=== PATIENT | female | born 1985 | race Caucasian/White ===

== ENCOUNTER 2018-04-16 15:00 | Emergency (ER) | payer SELFPAY ==
--- NOTE | 2018-04-16 15:19 | EDM.PDOC ---
ED HPI GENERAL MEDICAL PROBLEM - General Chief Complaint: Abdominal Pain Stated Complaint: RT SIDE HURTS Time Seen by Provider: 04/16/18 15:18 Source of Information: Reports: Patient History Limitations: Reports: No Limitations - History of Present Illness INITIAL COMMENTS - FREE TEXT/NARRATIVE: HISTORY AND PHYSICAL: []33-year-old female presenting with right upper quadrant pain History of Present Illness: []Patient has stated she's had this pain for months off and on but steady now for the last 4 days She does state that it hurts worse after she eats Review of Systems: As per history of present illness and below otherwise all systems reviewed and negative. Past medical history: As per history of present illness and as reviewed below otherwise noncontributory. Surgical history: As per history of present illness and as reviewed below otherwise noncontributory. Social history: No reported history of drug or alcohol abuse. Family history: As per history of present illness and as reviewed below otherwise noncontributory. Physical exam: Alert and oriented female answering questions appropriately in full sentences without any shortness of breath. Nontoxic in appearance. HEENT: Atraumatic, normocehpalic, pupils reactive, negative for conjunctival pallor or scleral icterus, mucous membranes moist, throat clear, neck supple, nontender, trachea midline. Lungs: Clear to auscultation, breath sounds equal bilaterally, chest non tender. Heart: S1S2, regular, negative for clicks, rubs, or JVD. Abdomen: Soft, nondistended, nontender. Negative for masses or hepatossplenmegaly. Negative for costovertebral tenderness. Pelvis: Stable nontender. Genitourinary: Deferred. Rectal: Deferred Extremities: Atraumatic, negative for cords or calf pain. Neurovascular unremarkable. Neuro: Awake, alert, oriented. Cranial nerves II through XII unremarkable. Cerebellum unremarkable. Motor and sensory unremarkable throughout. Exam nonfocal. 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 Onset: Gradual Duration: Chronic Location: Reports: Abdomen Quality: Reports: Stabbing Severity: Moderate Improves with: Reports: None Worsens with: Reports: None RUQ pain Pain Score (Numeric/FACES): 8 - Related Data Allergies Allergy/AdvReac Type Severity Reaction Status Date / Time No Known Allergies Allergy Verified 04/16/18 15:12 Home Meds: Home Meds . [No Known Home Meds] 04/16/18 [History] Past Medical History - Past Health History Medical/Surgical History: Denies Medical/Surgical History - Past Surgical History Female Surgical History: Reports: Section Social & Family History - Family History Family Medical History: Noncontributory Cardiac: Reports: Hypertension - Tobacco Use Smoking Status *Q: Never Smoker Second Hand Smoke Exposure: No - Caffeine Use Caffeine Use: Reports: Coffee - Recreational Drug Use Recreational Drug Use: No ED ROS GENERAL - Review of Systems Review Of Systems: ROS reveals no pertinent complaints other than HPI. ED EXAM, GI/ABD - Physical Exam Exam: See Below (see dictation) Course - Vital Signs Last Recorded V/S: Last Vital Signs Temp 36.2 C 04/16/18 15:09 Pulse 91 04/16/18 15:09 Resp 16 04/16/18 15:09 BP 130/67 04/16/18 15:09 Pulse Ox 97 04/16/18 15:09 - Orders/Labs/Meds Orders: Active Orders 24 hr Category Date Time Status HCG QUALITATIVE,URINE [URCHEM] Stat Lab 04/16/18 15:19 Ordered Sodium Chloride 0.9% [Saline Flush] Med 04/16/18 15:16 Active 10 ml FLUSH ASDIRECTED PRN Sodium Chloride 0.9% [Saline Flush] Med 04/16/18 15:16 Active 2.5 ml FLUSH ASDIRECTED PRN Saline Lock Insert [OM.PC] Stat Oth 04/16/18 15:16 Ordered Medication Orders Sodium Chloride (Saline Flush) 10 ml FLUSH ASDIRECTED PRN PRN Reason: Keep Vein Open Last Admin: 04/16/18 15:46 Dose: 10 ml Sodium Chloride (Saline Flush) 2.5 ml FLUSH ASDIRECTED PRN PRN Reason: Keep Vein Open Last Admin: 04/16/18 15:46 Dose: 2.5 ml Labs: Laboratory Tests 04/16/18 04/16/1804/16/18 Range/Units 15:19 15:52 15:52 WBC 13.99 H (4.0-11.0) K/uL RBC 4.62 (4.30-5.90) M/uL Hgb 14.5 (12.0-16.0) g/dL Hct 42.5 (36.0-46.0) % MCV 92.0 (80.0-98.0) fL MCH 31.4 (27.0-32.0) pg MCHC 34.1 (31.0-37.0) g/dL RDW Std Deviation 43.5 (28.0-62.0) fl RDW Coeff of George 13 (11.0-15.0) % Plt Count 226 (150-400) K/uL MPV 10.60 (7.40-12.00) fL Neut % (Auto) 81.0 H (48.0-80.0) % Lymph % (Auto) 10.7 L (16.0-40.0) % [place] % (Auto) 7.0 (0.0-15.0) % Eos % (Auto) 1.1 (0.0-7.0) % Baso % (Auto) 0.2 (0.0-1.5) % Neut # (Auto) 11.3 H (1.4-5.7) K/uL Lymph # (Auto) 1.5 (0.6-2.4) K/uL [place] # (Auto) 1.0 H (0.0-0.8) K/uL Eos # (Auto) 0.2 (0.0-0.7) K/uL Baso # (Auto) 0.0 (0.0-0.1) K/uL Nucleated RBC % 0.0 /100WBC Nucleated RBCs # 0 K/uL Sodium 141 (136-145) mmol/L Potassium 3.9 (3.5-5.1) mmol/L Chloride 106 (98-107) mmol/L Carbon Dioxide 26.7 (21.0-32.0) mmol/L BUN 11 (7.0-18.0) mg/dL Creatinine 0.9 (0.6-1.0) mg/dL Est Cr Clr Drug Dosing 71.63 mL/min Estimated GFR (MDRD) > 60.0 ml/min Glucose 87 (74-106) mg/dL Calcium 8.8 (8.5-10.1) mg/dL Total Bilirubin 0.2 (0.2-1.0) mg/dL AST 15 (15-37) IU/L ALT 17 (14-63) IU/L Alkaline Phosphatase 49 (46-116) U/L Total Protein 7.3 (6.4-8.2) g/dL Albumin 4.0 (3.4-5.0) g/dL Globulin 3.3 (2.0-3.5) g/dL Albumin/Globulin Ratio 1.2 L (1.3-2.8) Amylase 47 (25-115) U/L Lipase 116 (73-393) U/L Urine HCG, Qual NEGATIVE (NEGATIVE) Meds: Medications Generic Name Dose Route Start Last Admin Trade Name Freq PRN Reason Stop Dose Admin Sodium Chloride 10 ml 04/16/18 15:16 04/16/18 15:46 Saline Flush FLUSH 10 ml ASDIRECTED PRN Administration Keep Vein Open Sodium Chloride 2.5 ml 04/16/18 15:16 04/16/18 15:46 Saline Flush FLUSH 2.5 ml ASDIRECTED PRN Administration Keep Vein Open Discontinued Medications Generic Name Dose Route Start Last Admin Trade Name Freq PRN Reason Stop Dose Admin Ketorolac Tromethamine 30 mg 04/16/18 15:17 04/16/18 15:45 Toradol IVPUSH 04/16/18 15:18 30 mg ONETIME ONE Administration Departure - Departure Time of Disposition: 16:30 Disposition: Home, Self-Care 01 Condition: Good Clinical Impression: Cholecystitis - Discharge Information Referrals: PCP,None [Primary Care Provider] - Michele Kendrick MD [Physician] - Forms: ED Department Discharge Additional Instructions: The following information is given to patients seen in the emergency department who are being discharged to home. This information is to outline your options for follow-up care. We provide all patients seen in our emergency department with a follow-up referral. The need for follow-up, as well as the timing and circumstances, are variable depending upon the specifics of your emergency department visit. If you don't have a primary care physician on staff, we will provide you with a referral. We always advise you to contact your personal physician following an emergency department visit to inform them of the circumstance of the visit and for follow-up with them and/or the need for any referrals to a consulting specialist. The emergency department will also refer you to a specialist when appropriate. This referral assures that you have the opportunity for followup care with a specialist. All of these measure are taken in an effort to provide you with optimal care, which includes your followup. Under all circumstances we always encourage you to contact your private physician who remains a resource for coordinating your care. When calling for followup care, please make the office aware that this follow-up is from your recent emergency room visit. If for any reason you are refused follow-up, please contact the [facility] emergency department at and asked to speak to the emergency department charge nurse. Take omeprazole twice daily No fat diet Referral has been sent for Dr. Michele Kendrick [facility] Special[facility] - General Surgery Professional [address], [address] [place] [address] call for an appointment for follow-up Turned to the emergency department as directed and discussed - My Orders Last 24 Hours: My Active Orders 04/16/18 15:16 Sodium Chloride 0.9% [Saline Flush] 10 ml FLUSH ASDIRECTED PRN Sodium Chloride 0.9% [Saline Flush] 2.5 ml FLUSH ASDIRECTED PRN Saline Lock Insert [OM.PC] Stat 04/16/18 15:19 HCG QUALITATIVE,URINE [URCHEM] Stat - Assessment/Plan Last 24 Hours: My Active Orders 04/16/18 15:16 Sodium Chloride 0.9% [Saline Flush] 10 ml FLUSH ASDIRECTED PRN Sodium Chloride 0.9% [Saline Flush] 2.5 ml FLUSH ASDIRECTED PRN Saline Lock Insert [OM.PC] Stat 04/16/18 15:19 HCG QUALITATIVE,URINE [URCHEM] Stat
[2018-04-16] MEDS: Ketorolac 30 MG/ML SDV IVPUSH ONE (15:45)
[2018-04-16] MEDS: Sodium Chloride 0.9% 10 ML Syringe FLUSH PRN (15:46)
[2018-04-16] MEDS: Sodium Chloride 0.9% 2.5 ML Syringe FLUSH PRN (15:46)
[2018-04-16 16:23] LABS: CHLORIDE,CL 106 mmol/L (98-107); SODIUM,NA 141 mmol/L (136-145)
--- NOTE | 2018-04-16 16:24 | US ---
Dominant sonogram Clinical history: Abdominal pain Comparison: None. Findings: The liver measures 18 cm in length and is of normal echogenicity. The gallbladder is physio logically distended and there is a large acoustically shadowing calculus present within the gallbladd er, mobile without gallbladder wall thickness or pericholecystic fluid. There is no common bile duct dilation. The duct measures 0.28 cm. Images of the right kidney nearby are normal. Impression: cholelithiasis with mobile gallstone in an otherwise normal gallbladder
== END 2018-04-16 16:45 | disposition home or self-care (01) ==
LOC: EDBD 15:00 → MW.ED 15:00
DX: K80.10 Calculus of gallbladder with chronic cholecystitis without obstruction (principal)
CPT/HCPCS: 36415; 76705; 80053; 81025; 82150; 83690; 85025; 96374; 99284; J1885; 99283

== ENCOUNTER 2018-04-28 07:03 | Day surgery (SDC) | payer SELFPAY ==
[~2018-04-28 07:03] MED LIST: Lactated Ringers 1,000 ML IV SCH; cefOXitin 2 GM in Premix Bag 1 BAG IV ONE
[2018-04-28] MEDS ORDERED: Propofol 200 MG/20 ML SDV ONE (07:08)
[2018-04-28] MEDS ORDERED: Midazolam 1 MG/ML 2 ML SDV ONE (07:08)
[2018-04-28] MEDS ORDERED: fentaNYL 250 MCG/5 ML SDV ONE (07:09)
[2018-04-28] MEDS ORDERED: Scopolamine 1.5 MG Transdermal Patch TRDERM PRN (07:23)
[2018-04-28] MEDS ORDERED: Bupivacaine 0.5% 10 ML SDV ONE (07:32)
[2018-04-28] MEDS ORDERED: ceFAZolin 1 GM Vial ONE (07:33)
--- NOTE | 2018-04-28 07:36 | PCM.PREANE ---
Preanesthetic Assessment - Anesthesia/Transfusion/Family Hx Anesthesia History: Prior Anesthesia Without Reaction Family History of Anesthesia Reaction: No Transfusion History: No Prior Transfusion(s) Intubation History: Unknown - Review of Systems General: No Symptoms Pulmonary: No Symptoms Cardiovascular: No Symptoms Gastrointestinal: Abdominal Pain Neurological: No Symptoms Other: Reports: None - Physical Assessment Height: 1.57 m Weight: 68.039 kg ASA Class: 2 Mental Status: Alert & Oriented x3 Airway Class: Mallampati = 1 Dentition: Reports: Bridge (permaneent bridge upper front) Thyro-Mental Finger Breadths: 3 Mouth Opening Finger Breadths: 3 ROM/Head Extension: Full Lungs: Clear to Auscultation, Normal Respiratory Effort Cardiovascular: Regular Rate, Regular Rhythm - Lab Values: Laboratory Last Values Urine HCG, Qual NEGATIVE (NEGATIVE) 04/28/18 07:10 - Allergies Allergies/Adverse Reactions: Allergies Allergy/AdvReac Type Severity Reaction Status Date / Time No Known Allergies Allergy Verified 04/24/18 08:45 - Blood Blood Available: No - Anesthesia Plan Pre-Op Medication Ordered: None - Acknowledgements Anesthesia Type Planned: General Anesthesia Pt an Appropriate Candidate for the Planned Anesthesia: Yes Alternatives and Risks of Anesthesia Discussed w Pt/Guardian: Yes Pt/Guardian Understands and Agrees with Anesthesia Plan: Yes PreAnesthesia Questionnaire - Past Health History Medical/Surgical History: Denies Medical/Surgical History HEENT History: Reports: Other (See Below) Other HEENT History: wears glasses, has a top permanent bridge Gastrointestinal History: Reports: GERD, Irritable Bowel Syndrome Genitourinary History: Reports: None LURE MAKER History: Reports: Psychiatric History: Reports: Anxiety, Depression - Past Surgical History Head Surgeries/Procedures: Reports: None Female Surgical History: Reports: Section Musculoskeletal Surgical History: Reports: Other (See Below) Other Musculoskeletal Surgeries/Procedures:: excision of lipoma to back - SUBSTANCE USE Smoking Status *Q: Never Smoker Recreational Drug Use History: No - HOME MEDS Home Medications: Home Meds . [No Known Home Meds] 04/16/18 [History] - CURRENT (IN HOUSE) MEDS Current Meds: Current Medications Lactated Ringer's (Ringers, Lactated) 1,000 mls @ 125 mls/hr IV ASDIRECTED ADRIENNE Last Admin: 04/28/18 07:30 Dose: 125 mls/hr Scopolamine (Transderm-Scop) 1.5 mg TRDERM Q72H PRN PRN Reason: Nausea Last Admin: 04/28/18 07:30 Dose: 1.5 mg Discontinued Medications Fentanyl (Sublimaze) Confirm Administered Dose 250 mcg .ROUTE .STK-MED ONE Stop: 04/28/18 07:10 Cefoxitin Sodium 2 gm/ Premix 50 mls @ 100 mls/hr IV ONETIME ONE Stop: 04/28/18 06:29 Midazolam HCl (Versed 1 Mg/Ml) Confirm Administered Dose 2 mg .ROUTE .STK-MED ONE Stop: 04/28/18 07:09 Propofol (Diprivan 20 Ml) Confirm Administered Dose 200 mg .ROUTE .STK-MED ONE Stop: 04/28/18 07:09
[2018-04-28] MEDS ORDERED: Lidocaine 2% 5 ML SDV ONE (08:15)
[2018-04-28] MEDS ORDERED: Rocuronium 10 MG/ML 10 ML Syringe ONE (08:15)
[2018-04-28] MEDS ORDERED: ePHEDrine 50 MG/ML SDV ONE (08:16)
[2018-04-28] MEDS ORDERED: Acetaminophen/HYDROcodone 325-5 MG Tab PO PRN (09:14)
[2018-04-28] MEDS ORDERED: Morphine 4 MG/ML Syringe IVPUSH PRN (09:14)
[2018-04-28] MEDS ORDERED: Lactated Ringers 1,000 ML IV SCH (09:15)
--- NOTE | 2018-04-28 09:16 | PCM.OPNOTE ---
- General Post-Op/Procedure Note Date of Surgery/Procedure: 04/28/18 Operative Procedure(s): Laparoscopic cholecystectomy Pre Op Diagnosis: Symptomatic cholelithiasis Post-Op Diagnosis: Same Anesthesia Technique: General ET Tube (ASA II) Primary Surgeon: Michele Kendrick Fluid Replacement, Intraop: 1,000 Output, Urine Amount: 50 EBL in mLs: 10 Condition: Good Free Text/Narrative:: DICTATION 298643 CPT CODE 01798
[2018-04-28] MEDS ORDERED: Ondansetron 4 MG/2 ML SDV IVPUSH ONE (09:31)
[2018-04-28] MEDS ORDERED: Ondansetron 4 MG/2 ML SDV ONE (09:32)
--- NOTE | 2018-04-28 10:30 | PCM.POSTAN ---
POST ANESTHESIA ASSESSMENT - MENTAL STATUS Mental Status: Alert, Oriented - RESPIRATORY Respiratory Status: Respiratory Rate WNL, Airway Patent, O2 Saturation Stable - CARDIOVASCULAR CV Status: Pulse Rate WNL, Blood Pressure Stable - GASTROINTESTINAL GI Status: No Symptoms - POST OP HYDRATION Hydration Status: Adequate & Stable
--- NOTE | 2018-04-28 14:42 | OR ---
SURGEON: Michele Kendrick M.D. DATE OF PROCEDURE: 04/28/2018 OPERATION PERFORMED: Laparoscopic cholecystectomy. ANESTHESIA: General endotracheal. ASA CLASSIFICATION: II. PREOPERATIVE DIAGNOSIS: Symptomatic cholelithiasis. POSTOPERATIVE DIAGNOSIS: Cholelithiasis. INTRAOPERATIVE FLUID REPLACEMENT: 1000 mL. INTRAOPERATIVE URINARY OUTPUT: 50 mL. ESTIMATED BLOOD LOSS: 10 mL. DESCRIPTION OF PROCEDURE: The patient was taken to the operating room and placed on the operating table in the supine position. Time-out was called for appropriate identification of the patient and procedure. Thigh-high TEDs and sequential compression boots were placed. Following satisfactory attainment of general endotracheal anesthesia, a Penaloza catheter was placed in the patient's urinary bladder. The abdomen was prepped with DuraPrep solution. Sterile drapes were applied. The skin below the umbilicus was infiltrated with 0.5% Marcaine solution. The skin incision was made and deepened through the subcutaneous tissue obtaining hemostasis with the use of electrocautery. Veress needle was introduced into the peritoneal cavity. Saline drop test was positive. Carbon dioxide pneumoperitoneum was established with the release set at 13 cm of water. Once satisfactory pneumoperitoneum was established, 5-mm camera and port were placed through the infraumbilical incision. The patient was positioned with her feet down and rolled to the left. Under camera vision, 12-mm subxiphoid, 5-mm midclavicular, and 5-mm anterior axillary ports were placed. Each incision was preemptively infiltrated with 0.5% Marcaine solution. With all trocars in place, the gallbladder was grasped, adhesions were taken down and the cholecystohepatic triangle was dissected free identifying the cystic duct and cystic artery. Critical view of each structure was obtained. The cystic duct was hemo-clipped and divided with the laparoscopic Metzenbaum scissor. Cystic artery was handled in a similar fashion, Hemoclipping the vessel with care taken to avoid injury to the right hepatic which was in proximity. The cystic artery was then transected with the laparoscopic Metzenbaum scissor. Using the hook electrocautery, the gallbladder was dissected away from its bed. Small bleeding sites were electrocoagulated. Once the gallbladder was amputated, this was placed in an Endopouch and secured intraperitoneally. The bed of the gallbladder was inspected for hemostasis and bile leak. No bile leak was noted. There was no bleeding. The right upper quadrant was irrigated with sterile saline solution. All fluid was aspirated. Following that, the right hemidiaphragm was irrigated with 200 mL of saline containing 20 mL of 0.5% Marcaine solution. That fluid was left in situ. The Endopouch containing gallbladder was then delivered through the 12-mm subxiphoid port. Under camera vision, 5-mm midclavicular and anterior axillary ports were removed and finally the infraumbilical camera and port were removed. All wounds were inspected for hemostasis and bleeding sites were electrocoagulated. The subxiphoid and infraumbilical incisions were closed in 2 layers approximating the subcutaneous tissue with 3-0 Vicryl and the skin with subcuticular 4-0 Monocryl. The midclavicular and anterior axillary incisions were closed with subcuticular 4-0 Monocryl. All incisions were Steri- Stripped and dressed with sterile Tegaderm pads. Sponge, needle, and instrument counts were all correct. The Penaloza catheter was removed prior to emergence from anesthesia. Following emergence from anesthesia and extubation, the patient was taken to recovery room in satisfactory condition. CASSI DANIELS /[id number]
== END 2018-04-28 12:38 | disposition home or self-care (01) ==
LOC: MW.SDS 07:03
PROVIDERS: ATTEND Surgery
DX: K80.10 Calculus of gallbladder with chronic cholecystitis without obstruction (principal); K82.8 Other specified diseases of gallbladder; I10 Essential (primary) hypertension; K21.9 Gastro-esophageal reflux disease without esophagitis; F41.9 Anxiety disorder, unspecified; F32.9 Major depressive disorder, single episode, unspecified; J30.9 Allergic rhinitis, unspecified; Z87.891 Personal history of nicotine dependence; Z79.899 Other long term (current) drug therapy
CPT/HCPCS: 47562; 81025; A9270; J2250; J2405; J3010; J7120; 88304; J0690; J2704